=== PATIENT | female | born 2000 | race Caucasian/White ===

== ENCOUNTER → 2020-01-06 15:22 | Outpatient (BNVA) | payer OTHER, SELFPAY | PROVIDERS: Family Provider Family Medicine; PCP Nurse Practitioner Family; Visit Provider Nurse Practitioner Women's Health | DX: N92.6 Irregular menstruation, unspecified (principal); Z01.419 Encounter for gynecological examination (general) (routine) without abnormal findings | CPT/HCPCS: 83036; 84402; 84443; 84702 ==

== ENCOUNTER → 2020-01-07 10:58 | Outpatient (BNVA) | payer OTHER, SELFPAY | PROVIDERS: Family Provider Family Medicine; PCP Nurse Practitioner Family; Visit Provider Nurse Practitioner Women's Health | DX: N92.6 Irregular menstruation, unspecified (principal); N83.02 Follicular cyst of left ovary; N83.01 Follicular cyst of right ovary | CPT/HCPCS: 76830 ==

== ENCOUNTER 2021-03-23 12:43 | Outpatient (CLI) | payer OTHER, SELFPAY ==
--- NOTE | 2021-03-23 | US_ITS ---
WS: [id number] RENAL ULTRASOUND URINARY BLADDER ULTRASOUND HISTORY: URINARY FREQUENCY COMPARISON: None available. TECHNIQUE: 2-D and color Doppler imaging of the kidney submitted. Right kidney: 9.7 cm x 5.5 cm x 3.8 cm. Normal echogenicity with no hydronephrosis or mass. Left kidney: 11.9 cm x 4.3 cm x 4.8 cm. Normal echogenicity with no hydronephrosis or mass. Aorta: Normal. Urinary Bladder: Normal distention. No filling defects. Prevoid volume: 395 mL. Post void volume: 14 mm. US/US renal BI with PV bladder IMPRESSION: Normal renal ultrasound. No significant post void residual.
--- NOTE | 2021-03-23 12:57 | US_ITS ---
WS: [id number] RENAL ULTRASOUND URINARY BLADDER ULTRASOUND HISTORY: URINARY FREQUENCY COMPARISON: None available. TECHNIQUE: 2-D and color Doppler imaging of the kidney submitted. Right kidney: 9.7 cm x 5.5 cm x 3.8 cm. Normal echogenicity with no hydronephrosis or mass. Left kidney: 11.9 cm x 4.3 cm x 4.8 cm. Normal echogenicity with no hydronephrosis or mass. Aorta: Normal. Urinary Bladder: Normal distention. No filling defects. Prevoid volume: 395 mL. Post void volume: 14 mm.
== END 2021-03-23 12:44 | disposition home or self-care (01) ==
PROVIDERS: PCP Family Medicine; Visit Provider Family Medicine
DX: R35.0 Frequency of micturition (principal)
CPT/HCPCS: 76770; 76857

== ENCOUNTER → 2021-05-30 15:02 | Outpatient (BNVA) | payer OTHER, SELFPAY | PROVIDERS: PCP Family Medicine; Visit Provider Nurse Practitioner Women's Health | DX: E28.2 Polycystic ovarian syndrome (principal) | CPT/HCPCS: 84702 ==

== ENCOUNTER → 2021-07-05 12:15 | Outpatient (BNVA) | payer OTHER, SELFPAY | PROVIDERS: PCP Family Medicine; Visit Provider Nurse Practitioner Women's Health | DX: Z01.419 Encounter for gynecological examination (general) (routine) without abnormal findings (principal) | CPT/HCPCS: 88175 ==

== ENCOUNTER 2021-12-11 10:09 | Outpatient (CLI) | payer OTHER, SELFPAY ==
[2021-12-11 11:20] LABS: Total Volume Urine 1350 ml
[2021-12-11 11:27] LABS: Urine Creatinine 104 mg/dL (28-217)
[2021-12-11 11:44] LABS: Thyroid Stimulating Hormone 2.05 uIU/mL (0.27-4.20)
[2021-12-12 15:08] LABS: Thyroglobulin AB <1 IU/mL (< or = 1)
[2021-12-12 15:38] LABS: Thyroid Peroxidase Antobodies <1 IU/mL (<9)
[2021-12-14 21:12] LABS: Calculated Total (E+NE) 35 mcg/24 h (26-121)
[2021-12-15 21:37] LABS: 24 Hour Urine Volume 1350 mL; 5-HIAA, 24 Hour Urine 3.2 mg/24 h (<=6.0)
== END 2021-12-11 10:10 | disposition home or self-care (01) ==
LOC: LAB 10:35
PROVIDERS: PCP Family Medicine; Visit Provider Internal Medicine
DX: E28.2 Polycystic ovarian syndrome (principal); R23.2 Flushing
CPT/HCPCS: 36415; 82384; 82570; 83497; 84439; 84443; 86376; 86800

== ENCOUNTER → 2022-02-21 10:19 | Outpatient (BNVA) | payer OTHER, SELFPAY | PROVIDERS: PCP Family Medicine; Visit Provider Registered Nurse Neonatal Intensive Care | DX: J02.9 Acute pharyngitis, unspecified (principal) | CPT/HCPCS: 87071; 87880 ==

== ENCOUNTER → 2022-08-27 12:00 | Outpatient (BNVA) | payer OTHER, SELFPAY | PROVIDERS: PCP Family Medicine; Visit Provider Nurse Practitioner Women's Health | DX: E28.2 Polycystic ovarian syndrome (principal); N76.3 Subacute and chronic vulvitis; N92.6 Irregular menstruation, unspecified | CPT/HCPCS: 36415; 84403; 84702 ==

== ENCOUNTER → 2022-11-21 13:30 | Outpatient (BNVA) | payer OTHER, SELFPAY | PROVIDERS: PCP Family Medicine; Visit Provider Nurse Practitioner Women's Health | DX: N92.3 Ovulation bleeding (principal) | CPT/HCPCS: 84702 ==

== ENCOUNTER → 2022-12-17 09:41 | Outpatient (BNVA) | payer OTHER, SELFPAY | PROVIDERS: PCP Family Medicine; Visit Provider Nurse Practitioner Women's Health | DX: Z36.87 Encounter for antenatal screening for uncertain dates (principal) | CPT/HCPCS: 76801; 84315 ==

== ENCOUNTER 2023-01-01 16:04 | Emergency (ER) | payer OTHER, SELFPAY ==
[2023-01-01 16:20] VITALS: BP 125/77; PULSE 77; RESP 18; TEMP 36.7; O2SAT 100
--- NOTE | 2023-01-01 16:31 | ED_ITS ---
HPI - Nausea/Vomiting/Diarrhea General: Chief complaint: Nausea/Vomiting/Diarrhea Stated complaint: 10 weeks , n/v, possible dehydration Time Seen by Provider: 01/01/23 16:31 History of Present Illness: 22-year-old female presents emerged part with complaints of inability to hold liquids or fluids down for the previous 4 days. Patient states that she feels extremely dehydrated and has had more than 10 episodes of nausea and vomiting this morning. She states she contacted her primary care provider and was advised to come to the emergency department to be evaluated and treated. She states she is approximately 10 weeks gestation. She denies fevers chills or night sweats. Associated nausea: Yes Associated symtoms: Reports nausea Review of Systems General: Reports: 10 or more systems reviewed and unremarkable except in HPI and below GI: Reports: nausea and vomiting [facility] ED PFSH: Medical History Low libido No pertinent past medical history neghx: htn,dm,thyroid,dvt/pe PCOS (polycystic ovarian syndrome) Psychiatric care Surgical History Hx of wisdom tooth extraction (~04/2021) Family History Grandfather Diabetes Maternal Family/Other Diabetes Maternal Uncle Grandmother Hypertension Maternal Stroke Maternal Mother Hypertension Denies family history of Colon cancer Ovarian cancer Heart disease Hypercholesteremia Breast cancer Uterine cancer Physical Exam Narrative: EXAM NARRATIVE: Constitutional: the patient appeared well nourished and normally developed. Vital signs as documented. HENMT: Head exam is unremarkable. Neck is without jugular venous distension, thyromegaly, or carotid bruits. Carotid upstrokes are brisk bilaterally. Eye: No scleral icterus or corneal arcus noted Resp: Lungs are clear to auscultation and percussion. Cardio: Cardiac exam reveals the PMI to be normally sized and situated. Rhythm is regular. First and second heart sounds normal. No murmurs, rubs or gallops. GI: Abdominal exam reveals normal bowel sounds, no masses, no organomegaly and no aortic enlargement. Soft, nontender to palpation. No obvious palpable masses noted. No hepatomegaly appreciated. Extremity: Extremities are non-edematous and both femoral and pedal pulses are normal. Moves all extremities well, she has sensation in all extremities. Neuro: Alert and oriented x4, person, place, time and situation. Cranial nerves II through XII are grossly intact, there is no focal neurological deficits that I can appreciate at present. Motor strength in the upper and lower extremities are equal and bilateral 5/5. Psych: Cooperative, calm, normal thought process, appropriate judgment. Skin: No lesions, rashes. Course Vital Signs: Vital signs: Vital Signs Temperature 98.1 F 01/01/23 16:20 Pulse Rate 78 01/01/23 18:01 Respiratory Rate 17 01/01/23 18:01 Blood Pressure 120/80 01/01/23 18:01 Pulse Oximetry 98 01/01/23 18:01 Oxygen Delivery Me thod Room Air 01/01/23 16:20 MDM - Nausea/Vomiting/Diarrhea Medical Decision Making Physical exam completed and documented, I will provide the patient IV fluid rehydration as well as antinausea medicine. No radiology studies performed this visit Discharge Plan Discharge Patient Disposition: Home Clinical Impression: Nausea and vomiting during prior to 22 weeks gestation, Dehydration Condition: Stable Prescriptions: New ondansetron 4 mg tablet,disintegrating 4 mg PO Q8H PRN (Reason: nausea and vomiting) 5 Days Qty: 10 0RF No Action clobetasol 0.05 % ointment 1 applic topical BID PRN (Reason: vulvitits) Qty: 30 0RF Rx Instructions: use a thin film promethazine 25 mg tablet 25 mg PO Q6H PRN (Reason: nausea and vomiting) Qty: 30 0RF duloxetine 60 mg capsule,delayed release(DR/EC) 60 mg PO DAILY Qty: 30 2RF DHA 200 mg capsule 200 mg PO DAILY pyridoxine (vitamin B6) 25 mg tablet 25 mg PO DAILY PRN Unisom (doxylamine) 25 mg tablet 25 mg PO Q6H PRN Discharge Orders: Discharge ED (Routine); Ordered 01/01/23 Ordered By: Khoa Lira Referrals: Tyler Maynard MD [Primary Care Provider] - Discharge Diet: Advance as tolerated Discharge Activity: Resume usual activity Coding Level of Care Code ED Gis Analyst Developer for Chg Kj
[2023-01-01] MEDS: sodium chloride 0.9% 1,000 ML 999 ML IV (17:00)
[2023-01-01] MEDS: ondansetron 4 MG Tablet PO (17:00)
[2023-01-01 18:01] VITALS: BP 120/80; PULSE 78; RESP 17; O2SAT 98
== END 2023-01-01 18:02 | disposition home or self-care (01) ==
PROVIDERS: Emergency Provider Internal Medicine; PCP Family Medicine
DX: O26.892 Other specified pregnancy related conditions, second trimester (principal); R11.2 Nausea with vomiting, unspecified; E86.0 Dehydration; Z3A.22 22 weeks gestation of pregnancy
CPT/HCPCS: 84315; 96360; 99283; J7030; Q0162

== ENCOUNTER → 2023-01-06 10:17 | Outpatient (BNVA) | payer OTHER, SELFPAY | PROVIDERS: PCP Family Medicine; Visit Provider Obstetrics & Gynecology | DX: Z34.00 Encounter for supervision of normal first pregnancy, unspecified trimester (principal) | CPT/HCPCS: 80053; 80307; 82950; 84315; 85025; 86592; 86695; 86696; 86762; 86803; 86850; 86900; 87086; 87340; 87806 ==

== ENCOUNTER → 2023-01-08 09:30 | Outpatient (BNVA) | payer OTHER, SELFPAY | PROVIDERS: PCP Family Medicine; Visit Provider Obstetrics & Gynecology | DX: Z34.00 Encounter for supervision of normal first pregnancy, unspecified trimester (principal) | CPT/HCPCS: 82950 ==

== ENCOUNTER → 2023-01-20 10:07 | Outpatient (BNVA) | payer OTHER, SELFPAY | PROVIDERS: PCP Family Medicine; Visit Provider Obstetrics & Gynecology | DX: Z34.00 Encounter for supervision of normal first pregnancy, unspecified trimester (principal) | CPT/HCPCS: 84315; 87491; 87591; 87806 ==

== ENCOUNTER → 2023-02-12 11:32 | Outpatient (BNVA) | payer OTHER, SELFPAY | PROVIDERS: PCP Family Medicine; Visit Provider Nurse Practitioner Women's Health | DX: Z34.02 Encounter for supervision of normal first pregnancy, second trimester | CPT/HCPCS: 84315; 87086 ==

== ENCOUNTER 2023-02-14 16:46 | Emergency (ER) | payer OTHER, SELFPAY ==
[2023-02-14 16:51] VITALS: BP 119/83; PULSE 100; RESP 18; TEMP 36.4; O2SAT 99; BMI 28.3
--- NOTE | 2023-02-14 16:56 | ED_ITS ---
HPI - Nausea/Vomiting/Diarrhea 2 General: Chief complaint: Nausea/Vomiting/Diarrhea Stated complaint: NV,16 wks preg Time Seen by Provider: 02/14/23 16:47 Source: patient Mode of arrival: ambulatory Limitations: no limitations History of Present Illness: Patient is a 23-year-old female presents to ED today with a complaint of nausea and vomiting. She is approximately 16 weeks . Patient states she has had nausea and vomiting throughout her . Looking at previous documentation she has tried almost everything besides Zofran. Women's health documentation states that patient is not very compliant as far as avoiding trigger foods and eating small frequent meals. Patient states she is not having any abdominal pain. Denies vaginal bleeding or leaking of fluid. No pelvic pain or cramping. She has had some muscle cramping to her lower extremities. She has not been running fevers. No poor food exposures. Denies sick contacts. MD elicited complaint: nausea and vomiting Onset (ago): day(s) Associated nausea: Yes Associated abdominal pain: No Location of pain: None Severity: moderate Exacerbating factors: eating Relieving factors: none Context: other ( ) Associated symtoms: Reports nausea and other (muscle cramps); Denies chest pain, dizziness, dysuria, fatigue, headache(s) or malaise Review of Systems 2 Const: Denies: fever(s), chills, body aches, fatigue or malaise Card: Denies: chest pain Resp: Denies: dyspnea GI: Reports: nausea and vomiting; Denies: abdominal pain, diarrhea or change in bowel habits : Denies: flank pain, difficulty voiding, dysuria, urinary frequency, urinary urgency, urinary hesitancy, hematuria, genital lesions, genital pruritis, vaginal odor, vaginal bleeding, vaginal discharge or pelvic pain Musc: Reports: muscle cramps; Denies: back pain Skin/Breast: Denies: rash Neuro: Denies: headache(s) or dizziness PFSH ED 2 PFSH: Medical History Psychiatric care Low libido PCOS (polycystic ovarian syndrome) No pertinent past medical history neghx: htn,dm,thyroid,dvt/pe Surgical History Hx of wisdom tooth extraction (~04/2021) Family History Grandfather Diabetes Maternal Family/Other Diabetes Maternal Uncle Grandmother Hypertension Maternal Stroke Maternal Mother Hypertension Denies family history of Colon cancer Ovarian cancer Heart disease Hypercholesteremia Breast cancer Uterine cancer Physical Exam 2 Const: COMMON NORMALS: no acute distress, patient oriented x3, no limitations, healthy appearing, alert and well nourished Resp: COMMON NORMALS: normal respiratory effort and clear to auscultation bilaterally AUSCULTATION: clear to auscultation bilaterally Cardio: COMMON NORMALS: regular rate and regular rhythm RATE: regular rate RHYTHM: regular rhythm GI: COMMON NORMALS: Normal to inspection, nondistended, normoactive bowel sounds present, Soft to palpation and non-tender INSPECTION: Yes gravid abdomen AUSCULTATION: Yes normoactive bowel sounds PALPATION: Yes Soft to palpation Neuro: COMMON NORMALS: patient oriented x3 SENSORIUM/ORIENTATION: Yes alert Course 2 Vital Signs: Vital signs: Vital Signs Temperature 97.6 F 02/14/23 16:51 Pulse Rate 100 02/14/23 16:51 Respiratory Rate 18 02/14/23 16:51 Blood Pressure 119/83 02/14/23 16:51 Pulse Oximetry 99 02/14/23 16:51 Oxygen Delivery Me thod Room Air 02/14/23 16:51 MDM - Nausea/Vomiting/Diarrhea Medical Decision Making Patient here for nausea and vomiting related to . She has been dealing with nausea and vomiting throughout her . She is now 16 weeks. She arrives with normal vital signs. Her blood work overall is unremarkable. Urine showing dehydration with 3+ ketones and dark yellow appearance. It is contaminated with 15-25 squamous epithelial cells. She has no urinary complaints at this time. Recommend she keep a close observation of symptoms and follow up with PCP or Women's Health if she becomes symptomatic. She was given IV reglan and benadryl here and has held down water/crackers well and states her nausea is much improved. She can follow up with Women's Health if vomiting persists following today's visit. Return to ED precautions given. Lab Data 02/14/23 17:09 02/14/23 17:09 Laboratory Results WBC 12.46 10^3/uL (3.29-11.43) H 02/14/23 17:09 RBC 4.53 10^6/uL (3.85-5.65) 02/14/23 17:09 Hgb 13.40 g/dL (11.27-16.99) 02/14/23 17:09 Hct 39.2 % (36-47) 02/14/23 17:09 MCV 86.5 fl (85-98) 02/14/23 17:09 MCH 29.6 pg (27-33) 02/14/23 17:09 MCHC 34.2 g/dL (30-55) 02/14/23 17:09 RDW 12.8 % (12.1-15.1) 02/14/23 17:09 Plt Count 256 10^3/cmm (157-399) 02/14/23 17:09 MPV 9.3 fL (7.4-10.4) 02/14/23 17:09 Neut % (Auto) 76.6 % 02/14/23 17:09 Lymph % (Auto) 17.0 % 02/14/23 17:09 [place] % (Auto) 5.7 % 02/14/23 17:09 Eos % (Auto) 0.2 % 02/14/23 17:09 Baso % (Auto) 0.2 % 02/14/23 17:09 Neut # (Auto) 9.54 10^3/uL (1.8-7.7) H 02/14/23 17:09 Lymph # (Auto) 2.1 10^3/uL (0.8-4.8) 02/14/23 17:09 [place] # (Auto) 0.7 10^3/uL (0.2-0.9) 02/14/23 17:09 Eos # (Auto) 0.0 10^3/uL (0.0-0.8) 02/14/23 17:09 Baso # (Auto) 0.0 10^3/uL (0.0-0.1) 02/14/23 17:09 Nucleated RBC % (auto) 0 % 02/14/23 17:09 Nucleated RBCs # 0.0 /100WBC 02/14/23 17:09 Sodium 137 mmol/L (136-145) 02/14/23 17:09 Potassium 3.5 mmol/L (3.5-5.1) 02/14/23 17:09 Chloride 99 mmol/L (98-107) 02/14/23 17:09 Carbon Dioxide 25 mmol/L (22-29) 02/14/23 17:09 Anion Gap 16.5 (5-19) 02/14/23 17:09 BUN 13 mg/dL (6-20) 02/14/23 17:09 Creatinine 0.5 mg/dL (0.5-0.9) 02/14/23 17:09 GFR Calculation 152.9 mL/min (90-130) H 02/14/23 17:09 Glucose 97 mg/dL (65-115) 02/14/23 17:09 Calculated Osmolality 284 mOsm/kg (285-295) L 02/14/23 17:09 Calcium 9.5 mg/dL (8.5-10.5) 02/14/23 17:09 Magnesium 1.8 mg/dL (1.7-2.3) 02/14/23 17:09 Total Bilirubin 0.4 mg/dL (0.15-1.2) 02/14/23 17:09 AST 16 U/L (0-32) 02/14/23 17:09 ALT 11 U/L (0-33) 02/14/23 17:09 Alkaline Phosphatase 84 U/L (35-105) 02/14/23 17:09 Total Protein 7.2 g/dL (6.6-8.7) 02/14/23 17:09 Albumin 4.2 g/dL (3.5-5.2) 02/14/23 17:09 Globulin 3.0 g/dL (1.3-4.6) 02/14/23 17:09 Urine Color Dark yellow (Yellow) 02/14/23 17:44 Urine Appearance Sl hazy (CLEAR) A 02/14/23 17:44 Urine pH 5 (5-7) 02/14/23 17:44 Ur Specific [place] 1.020 (1.005-1.030) 02/14/23 17:44 Urine Protein 1+ (Negative) H 02/14/23 17:44 Urine Glucose (UA) Norm (Normal) 02/14/23 17:44 Urine Ketones 3+ (Negative) H 02/14/23 17:44 Urine Blood 2+ (Negative) H 02/14/23 17:44 Urine Nitrate Negative (Negative) 02/14/23 17:44 Urine Bilirubin Neg (Negative) 02/14/23 17:44 Urine Urobilinogen 1 mg/dL (Negative) H 02/14/23 17:44 Ur Leukocyte Esterase Negative (Negative) 02/14/23 17:44 Urine RBC 0-4 /hpf (0-2) H 02/14/23 17:44 Urine WBC 5-10 /hpf (0-5) H 02/14/23 17:44 Ur Squamous Epith Cells 15-25 /hpf (0-5) H 02/14/23 17:44 Amorphous Sediment Not Reportable 02/14/23 17:44 Urine Bacteria 2+ /hpf (NONE) H 02/14/23 17:44 Urine Mucus 2+ /hpf 02/14/23 17:44 No radiology studies performed this visit Discharge Plan Discharge Patient Disposition: Home Clinical Impression: Nausea and vomiting during prior to 22 weeks gestation Condition: Stable Prescriptions: No Action clobetasol 0.05 % ointment 1 applic topical BID PRN (Reason: vulvitits) Qty: 30 0RF Rx Instructions: use a thin film metoclopramide HCl [Reglan] 10 mg tablet 10 mg PO Q6H PRN (Reason: nausea and vomiting) Qty: 60 0RF duloxetine 60 mg capsule,delayed release(DR/EC) 60 mg PO DAILY Qty: 30 2RF DHA 200 mg capsule 200 mg PO DAILY pyridoxine (vitamin B6) 25 mg tablet 25 mg PO DAILY PRN Unisom (doxylamine) 25 mg tablet 25 mg PO Q6H PRN promethazine 25 mg tablet 25 mg PO Q6H PRN (Reason: nausea and vomiting) Qty: 30 0RF Discharge Orders: Discharge ED (Routine); Ordered 02/14/23 Ordered By: Mamta Lamas Referrals: Tyler Maynard MD [Primary Care Provider] - Patient Instructions: Nausea and Vomiting in (ED) Coding Level of Care Code ED Rug Measurer for Wayne Underwood
[2023-02-14 17:15] LABS: Basophils % 0.2 %; Eosinophils % 0.2 %; Hematocrit 39.2 % (36-47); Lymphocytes # 2.1 10^3/uL (0.8-4.8); Mean Corpuscular HGB Conc 34.2 g/dL (30-55); Mean Corpuscular Hemoglobin 29.6 pg (27-33); Mean Corpuscular Volume 86.5 fl (85-98); Mean Platelet Volume 9.3 fL (7.4-10.4); Monocytes # 0.7 10^3/uL (0.2-0.9); Monocytes % 5.7 %; Neutrophils # 9.54 10^3/uL (1.8-7.7); Neutrophils % 76.6 %; Nucleated Red Blood Cells % 0 %; Platelet Count 256 10^3/cmm (157-399); Red Blood Count 4.53 10^6/uL (3.85-5.65); Red Cell Distribution Width 12.8 % (12.1-15.1); White Blood Count 12.46 10^3/uL (3.29-11.43)
[2023-02-14] MEDS: diphenhydrAMINE 50 mg/mL SDV 1mL 25 MG IVP (17:39)
[2023-02-14] MEDS: sodium chloride 0.9% 1,000 ML 999 ML IV (17:39)
[2023-02-14] MEDS: metoclopramide 5 mg/mL SDV 2 mL 10 MG IVP (17:41)
[2023-02-14 17:46] LABS: Alanine Aminotransferase 11 U/L (0-33); Albumin Level 4.2 g/dL (3.5-5.2); Alkaline Phosphatase 84 U/L (35-105); Anion Gap 16.5 (5-19); Aspartate Amino Transferase 16 U/L (0-32); Blood Urea Nitrogen 13 mg/dL (6-20); Calcium 9.5 mg/dL (8.5-10.5); Carbon Dioxide 25 mmol/L (22-29); Chloride 99 mmol/L (98-107); Glomerular Filtration Rate 152.9 mL/min (90-130); Glucose 97 mg/dL (65-115); Magnesium 1.8 mg/dL (1.7-2.3); Osmolality Calculated 284 mOsm/kg (285-295); Potassium 3.5 mmol/L (3.5-5.1); Sodium 137 mmol/L (136-145); Total Bilirubin 0.4 mg/dL (0.15-1.2); Total Protein 7.2 g/dL (6.6-8.7)
[2023-02-14 18:12] LABS: Add Urine Microscopic? YES; Bilirubin Urine Neg (Negative); Blood Urine 2+ (Negative); Glucose Urine UA Norm (Normal); Ketones Urine 3+ (Negative); Leukocyte Esterase Urine Negative (Negative); Nitrate Urine Negative (Negative); Protein Urine 1+ (Negative); RBC Urine 0-4 /hpf (0-2); Urine Appearance SL Hazy (CLEAR); Urine Color Dark Yellow (Yellow); Urobilinogen Urine 1 mg/dL (Negative); pH Urine 5 (5-7)
[2023-02-14 18:13] LABS: Add Urine Culture? No; Bacteria Urine 2+ /hpf; Mucus Urine 2+ /hpf; Squamous Epithelial Cell Urine 15-25 /hpf (0-5)
== END 2023-02-14 19:19 | disposition home or self-care (01) ==
PROVIDERS: Emergency Provider Physician Assistant; PCP Family Medicine
DX: O21.8 Other vomiting complicating pregnancy (principal); Z3A.16 16 weeks gestation of pregnancy
CPT/HCPCS: 36415; 80053; 81001; 83735; 85025; 96374; 96375; 99284; J1200; J2765; J7030

== ENCOUNTER → 2023-03-01 11:05 | Outpatient (BNVA) | payer OTHER, SELFPAY | PROVIDERS: PCP Family Medicine; Visit Provider Nurse Practitioner Family | DX: R39.9 Unspecified symptoms and signs involving the genitourinary system (principal); N94.9 Unspecified condition associated with female genital organs and menstrual cycle | CPT/HCPCS: 81000 ==

== ENCOUNTER → 2023-03-05 13:56 | Outpatient (BNVA) | payer OTHER, SELFPAY | PROVIDERS: PCP Family Medicine; Visit Provider Nurse Practitioner Women's Health | DX: N94.9 Unspecified condition associated with female genital organs and menstrual cycle (principal); R30.0 Dysuria | CPT/HCPCS: 84315; 87086 ==

== ENCOUNTER → 2023-03-10 10:58 | Outpatient (BNVA) | payer OTHER, SELFPAY | PROVIDERS: PCP Family Medicine; Visit Provider Obstetrics & Gynecology | DX: Z34.00 Encounter for supervision of normal first pregnancy, unspecified trimester (principal) | CPT/HCPCS: 76805; 84315 ==

== ENCOUNTER → 2023-04-09 07:55 | Outpatient (BNVA) | payer OTHER, MEDICAID, SELFPAY | PROVIDERS: PCP Family Medicine; Visit Provider Nurse Practitioner Women's Health | DX: Z34.02 Encounter for supervision of normal first pregnancy, second trimester (principal); F41.1 Generalized anxiety disorder; F33.1 Major depressive disorder, recurrent, moderate | CPT/HCPCS: 82950; 84315 ==

== ENCOUNTER → 2023-05-05 07:55 | Outpatient (BNVA) | payer OTHER, MEDICAID, SELFPAY | PROVIDERS: PCP Family Medicine; Visit Provider Obstetrics & Gynecology | DX: Z34.02 Encounter for supervision of normal first pregnancy, second trimester | CPT/HCPCS: 84315; 85025 ==

== ENCOUNTER → 2023-07-07 10:11 | Outpatient (BNVA) | payer OTHER, MEDICAID, SELFPAY | PROVIDERS: PCP Family Medicine; Visit Provider Nurse Practitioner Women's Health | DX: O26.10 Low weight gain in pregnancy, unspecified trimester (principal); Z3A.35 35 weeks gestation of pregnancy | CPT/HCPCS: 76816; 84315; 87081 ==

== ENCOUNTER 2023-07-30 00:23 | Inpatient (IN) | payer BC, MEDICAID, SELFPAY ==
[2023-07-29 22:17] VITALS: BP 139/91; PULSE 90
[2023-07-29 22:32] VITALS: BP 147/94; PULSE 86
[2023-07-29 22:47] VITALS: BP 140/91; PULSE 87
[2023-07-29 22:56] VITALS: RESP 16
[2023-07-29 22:57] VITALS: BMI 32.5
[2023-07-29 23:01] LABS: Nitrazine Paper, PH Positive
[2023-07-29 23:02] VITALS: BP 136/89; PULSE 83
[2023-07-29 23:07] LABS: Actim Prom Positive
[2023-07-29 23:17] VITALS: BP 140/92; PULSE 87; TEMP 36.7
[2023-07-29 23:26] LABS: Basophils % 0.2 %; Eosinophils # 0.1 10^3/uL (0.0-0.8); Eosinophils % 0.6 %; Hematocrit 35.5 % (36-47); Lymphocytes # 2.5 10^3/uL (0.8-4.8); Lymphocytes % 20.2 %; Mean Corpuscular HGB Conc 34.4 g/dL (30-55); Mean Corpuscular Volume 87.2 fl (85-98); Mean Platelet Volume 10.8 fL (7.4-10.4); Monocytes # 1.1 10^3/uL (0.2-0.9); Monocytes % 9.1 %; Neutrophils # 8.63 10^3/uL (1.8-7.7); Neutrophils % 69.5 %; Nucleated Red Blood Cells % 0 %; Platelet Count 205 10^3/cmm (157-399); Red Blood Count 4.07 10^6/uL (3.85-5.65); Red Cell Distribution Width 12.7 % (12.1-15.1); White Blood Count 12.42 10^3/uL (3.29-11.43)
[2023-07-29] MEDS: dextrose 5%-lactated ringers 1,000 ML 125 ML IV (23:41)
[2023-07-29] MEDS: ampicillin 2,000 MG in sodium chloride 0.9% (plus) 50 ML 100 MG IV (23:42)
[2023-07-30] VITALS (84 sets, daily range): BP systolic 110–183; BP diastolic 67–108; PULSE 59–110; RESP 18; TEMP 36.6–37.4; O2SAT 92–100; BMI 32.5
--- NOTE | 2023-07-30 00:21 | PM.OPHPUD ---
Labor & Delivery H&P Update Date of Procedure: July 30, 2023 Date H&P Performed: 07/21/23 H&P update information: I have reviewed H&P completed within last 30 days and Changes to prior documentation as noted here (cervix 3cm, Premature ruptured of memebranes) Admission Diagnosis:
[2023-07-30] MEDS: ampicillin 1,000 MG in sodium chloride 0.9% (plus) 50 ML 100 MG IV ×4 (03:47→15:49)
[2023-07-30] MEDS: acetaminophen 325 mg Tablet 650 MG PO ×2 (04:11→11:05)
[2023-07-30 08:40] LABS: Basophils % 0.2 %; Eosinophils # 0.1 10^3/uL (0.0-0.8); Eosinophils % 0.7 %; Hematocrit 37.2 % (36-47); Lymphocytes # 2.7 10^3/uL (0.8-4.8); Lymphocytes % 23.2 %; Mean Corpuscular HGB Conc 33.3 g/dL (30-55); Mean Corpuscular Hemoglobin 29.4 pg (27-33); Mean Corpuscular Volume 88.2 fl (85-98); Mean Platelet Volume 10.9 fL (7.4-10.4); Monocytes # 0.9 10^3/uL (0.2-0.9); Monocytes % 7.7 %; Neutrophils # 7.84 10^3/uL (1.8-7.7); Neutrophils % 67.9 %; Nucleated Red Blood Cells % 0 %; Platelet Count 205 10^3/cmm (157-399); Red Blood Count 4.22 10^6/uL (3.85-5.65); White Blood Count 11.54 10^3/uL (3.29-11.43)
[2023-07-30 08:55] LABS: Alanine Aminotransferase 8 U/L (0-33); Albumin Level 3.2 g/dL (3.5-5.2); Alkaline Phosphatase 240 U/L (35-105); Anion Gap 12.4 (5-19); Aspartate Amino Transferase 12 U/L (0-32); Blood Urea Nitrogen 14 mg/dL (6-20); Calcium 8.5 mg/dL (8.5-10.5); Carbon Dioxide 22 mmol/L (22-29); Chloride 105 mmol/L (98-107); Creatinine Clr Calc Pharmacy 199.5365; Glomerular Filtration Rate 152.9 mL/min (90-130); Glucose 91 mg/dL (65-115); Osmolality Calculated 280 mOsm/kg (285-295); Potassium 4.4 mmol/L (3.5-5.1); Protein Urine Trace (Negative); Sodium 135 mmol/L (136-145); Total Bilirubin 0.2 mg/dL (0.15-1.2); Total Protein 6.2 g/dL (6.6-8.7); Uric Acid 3.5 mg/dL (2.4-5.7); Urine Appearance Clear (CLEAR); Urine Color Yellow (Yellow); pH Urine 6 (5-7)
[2023-07-30 08:56] LABS: Add Urine Microscopic? YES; Bilirubin Urine Neg (Negative); Blood Urine 2+ (Negative); Glucose Urine UA Norm (Normal); Ketones Urine Negative (Negative); Leukocyte Esterase Urine Negative (Negative); Nitrate Urine Negative (Negative); Urobilinogen Urine Norm (Negative)
[2023-07-30 09:09] LABS: Add Urine Culture? No; Amorphous Sediment Urine TRACE /hpf; Bacteria Urine TRACE /hpf; Fine Granular Casts Urine RARE /lpf; Hyaline Casts Urine 0-4 /lpf; Mucus Urine TRACE /hpf; RBC Urine 0-4 /hpf (0-2); Squamous Epithelial Cell Urine 0-4 /hpf (0-5); Transitional Epi Cells Urine 0-4 /hpf; WBC Urine 0-4 /hpf (0-5)
[2023-07-30 09:12] LABS: Urine Creatinine 136 mg/dL (28-217)
[2023-07-30 09:14] LABS: UPRO/UCREAT Ratio 0.26 mg/mg CR; Urine Protein Random 35 mg/dL
[2023-07-30] MEDS: oxytocin 30 UNIT/500 ML BAG IV (10:50)
[2023-07-30] MEDS: duloxetine 30 mg Capsule PO (11:04)
--- NOTE | 2023-07-30 11:19 | P.PN_ITS ---
Subjective 2 Subjective: Mrs. Little 23-year-old female G1, P0 with an EGA at [] admitted to labor and delivery with premature rupture membranes. Refers feeling comfortable occasionally feeling contractions. Vitals/I&O/Wt Last Vital Signs Temp 99.3 F 07/30/23 08:44 Pulse 80 07/30/23 11:08 Resp 16 07/29/23 22:56 BP 136/94 07/30/23 11:08 O2 Del Method Room Air 07/29/23 23:04 07/29/23 07/30/23 07/30/23 22:59 06:59 14:59 Intake Total 202.083 / 202.083 50 / 50 Balance 202.083 / 202.083 50 / 50 Weight last 48 hrs Weight 91.626 kg Weight 91.626 kg Physical Exam 2 Narrative: GA: Alert and oriented ?3. Lungs: Clear to auscultation bilaterally. Heart: Regular rhythm and rate. Abdomen: Gravid, full the height equals dates, nontender. ASSISTANT CREDIT MANAGER: SVE; dilation: 4 cm, effacement: 85%, station: -3, presentation: Cephalic, membranes: Premature rupture of membranes. Extremities: no edema, no cyanosis, no calves pain. heart tracing: Basal rate: 140's bpm, Variability: moderate, Accelerations: present, Decelerations: absent, Contraction: q3min. Data 07/31/23 06:15 07/30/23 08:03 A&P Assessment and plan (1) Premature rupture of membranes: Mrs. Little 23-year-old female G1, P0 with an EGA at [] came to labor and delivery with early onset of labor, referring possible rupture of membrane. Prior was diagnosed and confirmed by active problem. heart tracing category 1. Oxytocin low-dose protocol started this morning, after evening shift staff refused to give her oxytocin because she had not signed the consent for oxytocin. Anticipate vaginal delivery Qualifiers: PROM gestational age: full term PROM onset of labor timing: onset of labor within 24 hours of rupture Qualified Code(s): O42.02 - Full-term premature rupture of membranes, onset of labor within 24 hours of rupture (2) Term : Plan Start oxytocin low-dose protocol for augmentation of labor. Continuous monitoring. Attestations 2 Medical Necessity Statement*: In my professional opinion per admitting diagnosis Coding Level of Care Code Acute Code for Chg Fwd Diagnoses Full-term premature rupture of membranes with onset of labor within 24 hours of rupture O42.02 PROM gestational age: full term PROM onset of labor timing: onset of labor within 24 hours of rupture Term Z34.90
[2023-07-30] MEDS: lactated ringers 1,000 ML 999 ML IV (15:42)
[2023-07-30] MEDS: labetalol 5 mg/mL SDV 20mL 20 MG IVP (15:45)
[2023-07-30] MEDS: ROPivacaine syringe 100 MG/50 ML SYRINGE 10 MG EPIDURAL (16:22)
--- NOTE | 2023-07-30 16:45 | ANES.PREANE2 ---
Pre-Anesthetic Assessment Height/Weight: Height 1.68 m Weight 91.626 kg Temp Pulse Resp BP O2 Del Method 99.0 F 66 16 164/108 Room Air 07/30/23 15:45 07/30/23 16:34 07/29/23 22:56 07/30/23 16:34 07/29/23 23:04 Preop Diagnosis: labor pains epidural Was Beta Hilton taken within 24 hours: N/A Was Clonidine taken within 24 hours: N/A Exam alert, oriented x 3, clear to auscultation bilaterally and regular rate & rhythm Airway Submandibular: within normal limits Cervical ROM: within normal limits Mallampati: Class II Dentition: full Pulmonary None reported CV/HEM None reported None reported Hepatic None reported GI Gastroesophageal Reflux Disease Metabolic None reported Musc/skel None reported Neuropsych Anxiety and Depression Anesthetic Plan ASA status: 2 Anesthesia: Eval. for regional block and Regional (specify below) Risk of > 500 ml blood loss (7ml/kg in children): No Medications/Allergies Home Medications Medication Instructions Recorded Confirmed Last Taken Type clobetasol 0.05 % topical ointment 1 applic topical BID PRN vulvitits 08/27/22 07/30/23 Unknown Rx #30 grams docosahexaenoic acid 200 mg 200 mg PO DAILY 12/17/22 07/30/23 Unknown History capsule ( DHA) metoclopramide HCl 10 mg tablet 10 mg PO Q6H PRN nausea and 06/09/23 07/30/23 Unknown Rx (Reglan) vomiting #60 tabs duloxetine 30 mg capsule,delayed 30 mg PO DAILY #30 caps 07/22/23 07/30/23 Unknown Rx release Allergies Allergy/AdvReac Type Severity Reaction Status Date / Time No Known Allergies Allergy Verified 07/21/23 11:24 Current Medications Generic Name Dose Route Start Last Admin Trade Name Freq PRN Reason Stop Dose Admin Acetaminophen 650 mg 07/29/23 23:02 07/30/23 11:05 Acetaminophen 325 Mg Tablet PO 650 mg Q6H PRN Administration Mild pain or temp > 100.4 Duloxetine HCl 30 mg 07/30/23 09:00 07/30/23 11:04 Duloxetine 30 Mg Capsule PO 30 mg DAILY CARLITA Administration Dextrose/Lactated Ringer's 1,000 mls @ 125 mls/hr 07/29/23 23:15 07/30/23 14:45 Dextrose 5%-Lactated Ringers IV Infused .Q8H CARLITA Infusion Ampicillin Sodium 1,000 mg/ 50 mls @ 100 mls/hr 07/30/23 03:15 07/30/23 15:49 Sodium Chloride IV 100 mls/hr Q4H CARLITA Administration Protocol Oxytocin 30 unit in 500 mls @ 1 mls/hr 07/29/23 23:15 07/30/23 14:45 Pitocin IV 7 milliunit/min .Q24H CARLITA 7 mls/hr Titration Protocol 1 MILLIUNIT/MIN Lactated Ringer's 1,000 mls @ 999 mls/hr 07/30/23 15:35 07/30/23 15:42 Lactated Ringers IV 999 mls/hr .Q1H1M PRN Administration See label comments Ropivacaine 100 mg in 50 mls @ 10 mls/hr 07/30/23 15:45 07/30/23 16:22 Naropin Syringe EPIDURAL 10 mls/hr .Q5H CARLITA Administration Labetalol HCl 20 mg 07/30/23 07:32 07/30/23 15:45 Labetalol 5 Mg/Ml Sdv 20ml IVP 20 mg PRN PRN Administration HYPERTENSION Protocol PFSH Anesthesia Medical History Psychiatric care Low libido PCOS (polycystic ovarian syndrome) No pertinent past medical history neghx: htn,dm,thyroid,dvt/pe Surgical History Hx of wisdom tooth extraction (~04/2021) Family History Grandfather Diabetes Maternal Family/Other Diabetes Maternal Uncle Grandmother Hypertension Maternal Stroke Maternal Mother Hypertension Denies family history of Colon cancer Ovarian cancer Heart disease Hypercholesteremia Breast cancer Uterine cancer Female Reproductive History : 1 Data Anesthesia 07/30/23 08:03 07/30/23 08:03 Short CBC 07/29/23 07/30/23 Range/Units 23:20 08:03 WBC 12.42 H 11.54 H (3.29-11.43) 10^3/uL Hgb 12.20 12.40 (11.27-16.99) g/dL Hct 35.5 L 37.2 (36-47) % MCV 87.2 88.2 (85-98) fl Plt Count 205 205 (157-399) 10^3/cmm Neut % (Auto) 69.5 67.9 % Neut # (Auto) 8.63 H 7.84 H (1.8-7.7) 10^3/uL BMP 07/30/23 08:03 Sodium 135 L Potassium 4.4 Chloride 105 Carbon Dioxide 22 BUN 14 Creatinine 0.5 Glucose 91 Calcium 8.5 Liver Function 07/30/23 Range/Units 08:03 Total Bilirubin 0.2 (0.15-1.2) mg/dL AST 12 (0-32) U/L ALT 8 (0-33) U/L Alkaline Phosphatase 240 H (35-105) U/L Albumin 3.2 L (3.5-5.2) g/dL Urine 07/30/23 Range/Units 08:03 Urine Color Yellow (Yellow) Urine Appearance Clear (CLEAR) Urine pH 6 (5-7) Ur Specific [place] 1.020 (1.005-1.030) Urine Protein Trace (Negative) Urine Glucose (UA) Norm (Normal) Urine Ketones Negative (Negative) Urine Nitrate Negative (Negative) Urine Bilirubin Neg (Negative) Ur Leukocyte Esterase Negative (Negative) Urine RBC 0-4 H (0-2) /hpf Urine WBC 0-4 H (0-5) /hpf Blood Bank 07/29/23 23:20 Blood Type O Positive Rho(D) Type Rh positive Antibody Screen Negative Cardiac Studies: No Data to Display
--- NOTE | 2023-07-30 17:19 | P.ANES_ITS ---
Anesthesia Procedures Procedure/Date: 07/30/23 epidural Procedure Narrative: epidural complete, bolus given, epidural pump initiated with CODING DIRECTOR education given, vitals taken during procedure and satisfactory throughout, patient admits to decrease pain, report of procedure to OB RN Epidural: Time Out Performed: Yes Consents Signed: Procedure Consent Consent: requested by attending/covering physician, from patient, risks and benefits reviewed and patient agrees to proceed Lumbar Level: L3-L4 Ep idural position: sitting Epidural procedure: sterile prep of area, 1% lidocaine to numb the area (3 mL), 18 g needle, negative for paresthesia passed, neg for paresthesia, test dose given, 1.5% xylocaine 1:200k epi (5 mL), 0.2% Ropivacaine bolus ml (5 mL), placed PCEA, no systemic response, sterile dressing applied, L.U.D. no apparent complications and 0.2% Ropiavacaine @ mls/hr (13 mL/hr)
--- NOTE | 2023-07-30 18:13 | PM.DELIVERY ---
Delivery Note: Date of delivery: July 30, 2023 Pre-delivery diagnoses: Term Premature rupture of membranes Post-delivery diagnoses: Same Procedure: Spontaneous vaginal delivery Delivering Physician: Tom Clifton MD Estimated blood loss (mL): 300 Findings: Term Female infant, weight 2690 grams, Apgars 8/9 Post Delivery Diagnoses: Premature rupture of membranes: Qualifiers: PROM onset of labor timing: onset of labor within 24 hours of rupture PROM gestational age: full term Qualified Code(s): O42.02 - Full-term premature rupture of membranes, onset of labor within 24 hours of rupture Delivery: The patient was noted to be complete and pushing, so was placed in the dorsal lithotomy position, prepped and draped in the usual sterile fashion for a vaginal delivery. Pt. Noted to have epidural anesthesia. At 1800 the patient delivered a viable 40 weeks female infant weighing 2690 g with scores of 8 and 9 at one and five minutes, respectively. The vertex was delivered spontaneously over intact. The patient was asked to push and the head delivered spontaneously in the SARIKA position, over an intact perineum. A nuchal cord was checked and 1 noted, and relieved around head. The anterior shoulder delivered easily and the posterior shoulder followed. The remainder of the infant was easily delivered and the oropharynx and nasopharynx was bulb suctioned. The infant was noted to have spontaneous cry and spontaneous movement of all four extremities. The cord was clamped x 2 and cut and noted to have 2 arteries and one vein. The was passed to the mother's abdomen where nursing personnel were in attendance. Cord blood sample was then obtained. The placenta delivered intact spontaneously and the uterus was explored. 20 units of Pitocin was placed in the IV bag to firm the uterus. Examination of the cervix and vaginal vault did not reveal any lacerations. Examination of the perineum showed no laceration. The patient tolerated this procedure well, and recovered in L&D with her in their LDR room. All sponge and needle counts were correct. History History History 1 Term Miscarriages/Ectopic Living Children A&P Assessment and plan (1) Term delivered: (2) Premature rupture of membranes: Qualifiers: PROM onset of labor timing: onset of labor within 24 hours of rupture PROM gestational age: full term Qualified Code(s): O42.02 - Full-term premature rupture of membranes, onset of labor within 24 hours of rupture Plan observation Coding Level of Care Code Acute Code for Chg Fwd Diagnoses Full-term premature rupture of membranes with onset of labor within 24 hours of rupture O42.02 PROM onset of labor timing: onset of labor within 24 hours of rupture PROM gestational age: full term Term delivered O80
[2023-07-30] MEDS: ibuprofen 800 mg tablet PO (21:15)
[2023-07-31 01:45] VITALS: BP 119/78; PULSE 97; RESP 16; TEMP 36.8; O2SAT 97
[2023-07-31 04:58] VITALS: BP 124/78; PULSE 99; RESP 18; TEMP 36.6; O2SAT 98
[2023-07-31 06:38] LABS: Hematocrit 32.2 % (36-47); Mean Corpuscular HGB Conc 33.9 g/dL (30-55); Mean Corpuscular Hemoglobin 29.9 pg (27-33); Mean Corpuscular Volume 88.2 fl (85-98); Mean Platelet Volume 11.1 fL (7.4-10.4); Platelet Count 183 10^3/cmm (157-399); Red Blood Count 3.65 10^6/uL (3.85-5.65); Red Cell Distribution Width 12.9 % (12.1-15.1); White Blood Count 13.57 10^3/uL (3.29-11.43)
--- NOTE | 2023-07-31 08:00 | ANE.PACU2 ---
Inpatient post-anesthesia follow up: Airway intact: Yes Vital signs: Temperature 98.1 F Pulse Rate 91 Respiratory Rate 18 Blood Pressure 137/89 Pulse Oximetry 97 Oxygen Delivery Me thod Room Air Oxygen Flow Rate Fraction of Inspir ed Oxygen Hydration adequate: Yes Nausea and vomiting: No Pain level: 1 Mental status: Baseline Epidural Start/End: Epidural Start Date: 07/30/23 Epidural Start Time: 16:58 Epidural End Date: 07/30/23 Epidural End Time: 18:13
[2023-07-31] MEDS: duloxetine 30 mg Capsule PO (09:23)
[2023-07-31] MEDS: PRENATAL VIT NO.130/IRON/FOLIC 1 EACH TABLET PO (09:23)
[2023-07-31] MEDS: ibuprofen 800 mg tablet PO ×2 (09:23→15:46)
[2023-07-31] MEDS: docusate sodium 100 mg Capsule PO (09:23)
[2023-07-31 09:29] VITALS: BP 130/80; PULSE 99; RESP 17; TEMP 36.8
[2023-07-31 15:47] VITALS: BP 134/79; PULSE 99; TEMP 36.8
--- NOTE | 2023-07-31 17:28 | PM.OBGYDC ---
Discharge Providers [employer] Date of Admission: 07/30/23 00:23 Date of Discharge: 07/31/23 Attending Provider at Admission: Tom Clifton MD Attending Provider at Discharge: Tom Clifton MD Primary Care Provider: Tyler Maynard MD Diagnoses at Discharge Discharge Diagnosis (1) Premature rupture of membranes: Status: Acute Qualifiers: PROM onset of labor timing: onset of labor within 24 hours of rupture PROM gestational age: full term Qualified Code(s): O42.02 - Full-term premature rupture of membranes, onset of labor within 24 hours of rupture (2) Term : Status: Acute Reason for Visit Reason for Visit: possible rupture of membranes Hospital Course Hospital Course Mrs. Leblanc 23-year-old female G1, P0 with an estimated gestational age at 40 weeks. Came to labor and delivery with premature rupture membranes, she progressed to have a spontaneous vaginal delivery without complications. Overnight observation was uneventful. She is afebrile and hemodynamically stable day 1. Tolerating diet well. Ambulating without difficulty. She was counseled regarding pelvic rest for 6 weeks (no sex, no tampons, no vaginal douches). Return to the emergency room if any fever, increased bleeding or pain. Information Peripartum Data: Infant Delivery Method: Vaginal Physical Exam Narrative: GA; alert and oriented x 3 HEENT: normal Breasts: engorged Nipples - skin intact Lungs; clear to auscultation Heart: regular rhythm, no murmurs. Abd: Appropriately tender. BS+. Uterine fundus below umbilicus. No Fundal Tenderness. Perineum: normal lochia. Extremities: no edema, no cyanosis, no tenderness. History History History 1 Term Miscarriages/Ectopic Living Children Discharge Data Studies Completed and Pending Laboratory Results WBC 13.57 10^3/uL (3.29-11.43) H 07/31/23 06:15 RBC 3.65 10^6/uL (3.85-5.65) L 07/31/23 06:15 Hgb 10.90 g/dL (11.27-16.99) L 07/31/23 06:15 Hct 32.2 % (36-47) L 07/31/23 06:15 MCV 88.2 fl (85-98) 07/31/23 06:15 MCH 29.9 pg (27-33) 07/31/23 06:15 MCHC 33.9 g/dL (30-55) 07/31/23 06:15 RDW 12.9 % (12.1-15.1) 07/31/23 06:15 Plt Count 183 10^3/cmm (157-399) 07/31/23 06:15 MPV 11.1 fL (7.4-10.4) H 07/31/23 06:15 Neut % (Auto) 67.9 % 07/30/23 08:03 Lymph % (Auto) 23.2 % 07/30/23 08:03 [place] % (Auto) 7.7 % 07/30/23 08:03 Eos % (Auto) 0.7 % 07/30/23 08:03 Baso % (Auto) 0.2 % 07/30/23 08:03 Neut # (Auto) 7.84 10^3/uL (1.8-7.7) H 07/30/23 08:03 Lymph # (Auto) 2.7 10^3/uL (0.8-4.8) 07/30/23 08:03 [place] # (Auto) 0.9 10^3/uL (0.2-0.9) 07/30/23 08:03 Eos # (Auto) 0.1 10^3/uL (0.0-0.8) 07/30/23 08:03 Baso # (Auto) 0.0 10^3/uL (0.0-0.1) 07/30/23 08:03 Nucleated RBC % (auto) 0 % 07/30/23 08:03 Nucleated RBCs # 0.0 /100WBC 07/30/23 08:03 Sodium 135 mmol/L (136-145) L 07/30/23 08:03 Potassium 4.4 mmol/L (3.5-5.1) 07/30/23 08:03 Chloride 105 mmol/L (98-107) 07/30/23 08:03 Carbon Dioxide 22 mmol/L (22-29) 07/30/23 08:03 Anion Gap 12.4 (5-19) 07/30/23 08:03 BUN 14 mg/dL (6-20) 07/30/23 08:03 Creatinine 0.5 mg/dL (0.5-0.9) 07/30/23 08:03 GFR Calculation 152.9 mL/min (90-130) H 07/30/23 08:03 Glucose 91 mg/dL (65-115) 07/30/23 08:03 Calculated Osmolality 280 mOsm/kg (285-295) L 07/30/23 08:03 Uric Acid 3.5 mg/dL (2.4-5.7) 07/30/23 08:03 Calcium 8.5 mg/dL (8.5-10.5) 07/30/23 08:03 Total Bilirubin 0.2 mg/dL (0.15-1.2) 07/30/23 08:03 AST 12 U/L (0-32) 07/30/23 08:03 ALT 8 U/L (0-33) 07/30/23 08:03 Alkaline Phosphatase 240 U/L (35-105) H 07/30/23 08:03 Total Protein 6.2 g/dL (6.6-8.7) L 07/30/23 08:03 Albumin 3.2 g/dL (3.5-5.2) L 07/30/23 08:03 Globulin 3.0 g/dL (1.3-4.6) 07/30/23 08:03 Insulin-like GF I Positive 07/29/23 22:50 Urine Color Yellow (Yellow) 07/30/23 08:03 Urine Appearance Clear (CLEAR) 07/30/23 08:03 Urine pH 6 (5-7) 07/30/23 08:03 Ur Specific [place] 1.020 (1.005-1.030) 07/30/23 08:03 Urine Protein Trace (Negative) 07/30/23 08:03 Urine Glucose (UA) Norm (Normal) 07/30/23 08:03 Urine Ketones Negative (Negative) 07/30/23 08:03 Urine Blood 2+ (Negative) H 07/30/23 08:03 Urine Nitrate Negative (Negative) 07/30/23 08:03 Urine Bilirubin Neg (Negative) 07/30/23 08:03 Urine Urobilinogen Norm mg/dL (Negative) 07/30/23 08:03 Ur Leukocyte Esterase Negative (Negative) 07/30/23 08:03 Urine RBC 0-4 /hpf (0-2) H 07/30/23 08:03 Urine WBC 0-4 /hpf (0-5) H 07/30/23 08:03 Ur Squamous Epith Cells 0-4 /hpf (0-5) H 07/30/23 08:03 Ur Transition Epith Cell 0-4 /hpf 07/30/23 08:03 Amorphous Sediment Trace /hpf 07/30/23 08:03 Urine Bacteria Trace /hpf (NONE) 07/30/23 08:03 Hyaline Casts 0-4 /lpf H 07/30/23 08:03 Fine Granular Casts Rare /lpf 07/30/23 08:03 Urine Mucus Trace /hpf 07/30/23 08:03 U Random Total Protein 35 mg/dL 07/30/23 08:03 Urine Creatinine 136 mg/dL (28-217) 07/30/23 08:03 Protein/Creatinin Ratio 0.26 mg/mg CR 07/30/23 08:03 Fluid pH (paper) Positive H 07/29/23 22:56 Blood Type O Positive 07/29/23 23:20 Rho(D) Type Rh positive 07/29/23 23:20 Antibody Screen Negative 07/29/23 23:20 Vitals Last Vital Signs Temp 98.2 F 07/31/23 15:47 Pulse 99 07/31/23 15:47 Resp 17 07/31/23 09:29 BP 134/79 07/31/23 15:47 Pulse Ox 98 07/31/23 04:58 O2 Del Method Room Air 07/31/23 04:58 Results Labs OB ([facility]): Obstetrics US 07/07/23 Blood Type O Positive 07/29/23 Antibody Screen Negative 07/29/23 Hct 32.2 % (36-47) L 07/31/23 Hgb 10.90 g/dL (11.27-16.99) L 07/31/23 Rho(D) Type Rh positive 07/29/23 Plt Count 183 10^3/cmm (157-399) 07/31/23 Hep Bs Antigen Non-reactive (Nonreactive) 01/06/23 Hepatitis C Antibody Non-reactive (Nonreactive) 01/06/23 Rubella IgG Antibody 365.7 IU/mL (0.0-10.0) H 01/06/23 HIV 1&2 Ab & HIV 1 Ag Non-reactive (Non-Reactiv) 01/20/23 TSH 2.05 uIU/mL (0.27-4.20) 12/11/21 Free T4 1.10 ng/dL (0.82-1.77) 12/11/21 C.trachomatis RNA (TMA) Not detected (NOT DETECTED) 01/20/23 N.gonorrhoeae RNA (TMA) Not detected (NOT DETECTED) 01/20/23 T. vaginalis Amp RNA Not detected (NOT DETECTED) 01/20/23 Chlamydia/GC Comment See note 01/20/23 Glucose 1 Hr 50 gm 87 mg/dL (85-140) 04/09/23 Gest Glucose Tolerance 109 mg/dL (70-139) 01/08/23 Hemoglobin A1c 5.1 % (4.0-6.0) 01/06/20 Uric Acid 3.5 mg/dL (2.4-5.7) 07/30/23 Ser , Semi-Qnt 135.10 mIU/mL 11/21/22 Urine Opiates Screen Negative ng/mL (Negative) 01/06/23 Ur Barbiturates Screen Negative ng/mL (Negative) 01/06/23 Ur Phencyclidine Scrn Negative ng/mL (Negative) 01/06/23 Ur Amphetamines Screen Negative ng/mL (Negative) 01/06/23 U Benzodiazepines Scrn Negative ng/mL (Negative) 01/06/23 Urine Cocaine Screen Negative ng/mL (Negative) 01/06/23 U Marijuana (THC) Screen Negative ng/mL (Negative) 01/06/23 Micro Urine Specimen 03/05/23 Pap Smear Interpret See note 07/05/21 Free Testosterone 9.6 pg/mL (0.2-5.0) H 01/06/20 Discharge Plan Discharge Patient Disposition: Home Condition: Stable Prescriptions: New ferrous sulfate [Iron (ferrous sulfate)] 325 mg (65 mg iron) tablet 325 mg PO BID Qty: 60 0RF acetaminophen 325 mg capsule 325 mg PO Q4H PRN (Reason: fever or pain) Qty: 60 0RF docusate sodium [Colace] 100 mg capsule 100 mg PO BID Qty: 60 0RF ibuprofen 800 mg tablet 800 mg PO TID PRN (Reason: pain) Qty: 60 0RF Continued clobetasol 0.05 % ointment 1 applic topical BID PRN (Reason: vulvitits) Qty: 30 0RF Rx Instructions: use a thin film DHA 200 mg capsule 200 mg PO DAILY metoclopramide HCl [Reglan] 10 mg tablet 10 mg PO Q6H PRN (Reason: nausea and vomiting) Qty: 60 0RF duloxetine 30 mg capsule,delayed release(DR/EC) 30 mg PO DAILY Qty: 30 2RF Discharge Orders: Discharge Order (Routine); Ordered 07/31/23 Ordered By: Tom Clifton Discharge Diet: Usual diet Discharge Activity: Limit activity as instructed Patient Instructions: Depression (DC), Opioid Safety (DC), Preeclampsia and Eclampsia After Delivery (GEN), Hemorrhage (DC), OB Discharge Report, OB Food/Drug Interaction Guide, Opioid Safety, OB Home Care, OB Vaginal Deliveries - [facility], Abnormal Bleeding Activity Restrictions/Additional Instructions: 1. Please call [facility] on next working day to make your appointment in 6 weeks. 2. Please stay home until you come back to the clinic on first post-hospatilization check up. 3. Please follow instructions on your medications CAREFULLY. 4. If you have abdominal incision, do not cover it unless dressing is necessary because of drainage. OK to shower, but avoid bath. Leave steri-strips until they fall off. If they are still on one week after surgery, you may remove them. 5. If you had vaginal surgery or vaginal repair, Dr. Clifton may instruct you to take SITZ bath. 6. Yellow, blood tinged odorous vaginal discharge is usually normal after hysterectomy or vaginal surgeries. 7. No SEXUAL INTERCOURSE, tampons, or douches until you are completely released from the post-operative care. 8. Avoid constipation by eating right and maybe using some Metamucil or Milk of Magnesia. 9. All prescription refills are given during the working hours. Please do no wait till it runs out. Call the clinic at [phone] before your medication runs out. The clinic will get in touch with your doctor to prescribe medications if necessary. 10. Please remain within 40 mile radius from our hospital because emergencies do happen now and then during the post-operative period. 11. If you have stairs at home, take one step at a time slowly and minimize the number of trips. It helps to stay in one floor for the next few days. No lifting except what you can lift by one hand until you are released from the post-operative care. 12. Driving is discouraged until you are well healed. It may be 3-4 weeks before you feel strong enough to drive. You should be able to turn and look through the rear window without pain and you should be able to push the brake pedal very hard without pain before you drive. No fast rules, but SAFETY should be your primary concern. DO NOT drive if you are on sedating medications such as narcotics. 13. Call the clinic (during working hours) to make urgent appointment or go to the Emergency room, if any of the following occurs: i. Vaginal bleeding becomes heavy, more than a period. ii. Incision becomes red and sore, or drains pus. iii. Your TEMPERATURE is over 100.4F or you have chill. iv. IV site becomes red and swollen (a little ``knot?? is usually OK) v. Persistent nausea and vomiting vi. Persistent constipation or diarrhea vii. Rash or allergic reaction to medications. Discharge Attestations [employer] Time Spent in Discharge Care*: greater than 30 min Coding Level of Care Code Acute Code for Chg Fwd Diagnoses Full-term premature rupture of membranes with onset of labor within 24 hours of rupture O42.02 PROM onset of labor timing: onset of labor within 24 hours of rupture PROM gestational age: full term Term Z34.90
[2023-07-31 20:45] VITALS: BP 137/89; PULSE 91; RESP 18; TEMP 36.7; O2SAT 97
== END 2023-07-31 21:00 | disposition home or self-care (01) | DRG 807 ==
LOC: OPOB 05:43 → OBGYN 05:43
PROVIDERS: Admitting Provider Obstetrics & Gynecology; PCP Family Medicine; Visit Provider Obstetrics & Gynecology
DX: O42.02 Full-term premature rupture of membranes, onset of labor within 24 hours of rupture (principal); Z37.0 Single live birth; O69.81X0 Labor and delivery complicated by cord around neck, without compression, not applicable or unspecified; Z3A.40 40 weeks gestation of pregnancy; O99.344 Other mental disorders complicating childbirth; F41.8 Other specified anxiety disorders; O99.824 Streptococcus B carrier state complicating childbirth
CPT/HCPCS: 36415; 59025; 59409; 80053; 81001; 82570; 83986; 84112; 84156; 84550; 85025; 85027; 86850; 86900; 98960; 99211; J0290; J2590; J2795; J3490; J7120; J7121

== ENCOUNTER 2023-12-13 21:05 | Emergency (ER) | payer OTHER, SELFPAY ==
[2023-12-13 21:40] VITALS: BP 150/95; PULSE 100; RESP 17; TEMP 36.9; O2SAT 99; BMI 32.3
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
[2023-12-14 03:46] VITALS: BP 153/64; PULSE 75; RESP 15; O2SAT 98
[2023-12-14 04:04] VITALS: RESP 19
[2023-12-14] MEDS: oxyCODONE-APAP 5-325 mg Tablet 2 TAB PO (04:04)
[2023-12-14 06:22] VITALS: BP 137/85; PULSE 78; RESP 15; O2SAT 98
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
[2023-12-14 07:00] VITALS: BP 122/77; PULSE 71; RESP 17; O2SAT 98
[2023-12-14 07:56] VITALS: BP 125/97; PULSE 71; O2SAT 98
== END 2023-12-14 07:59 | disposition home or self-care (01) ==
PROVIDERS: Emergency Provider Emergency Medicine; PCP Family Medicine
DX: S06.0XAA Concussion with loss of consciousness status unknown, initial encounter (principal); S80.02XA Contusion of left knee, initial encounter; S70.02XA Contusion of left hip, initial encounter; S20.219A Contusion of unspecified front wall of thorax, initial encounter; V89.2XXA Person injured in unspecified motor-vehicle accident, traffic, initial encounter
CPT/HCPCS: 70450; 70486; 71045; 73502; 73562; 99284

== ENCOUNTER 2024-03-09 13:44 | Emergency (ER) | payer SELFPAY ==
[2024-03-09 13:54] VITALS: BP 135/82; PULSE 88; TEMP 36.5; O2SAT 99
--- NOTE | 2024-03-09 14:36 | W.ED.BACK ---
HPI - Back Pain/Injury General: Chief Complaint: Back Pain/Injury Stated Complaint: chest pain Time Seen by Provider: 03/09/24 14:20 Source: patient Mode of arrival: ambulatory Limitations: no limitations History of Present Illness: Patient is a 24-year-old female presents to ED today with a complaint of back pain. Patient states she was lying down breast-feeding her infant and when she leaned forward, she immediately noticed pain to her thoracic back. She feels that the pain seems to come and go and is worse with movement and seems to catch . Patient states her pain does not seem to radiate to her abdomen or chest. She states pain seems to be to the left side of her thoracic region. States she had a history of kidney stones as a child but none since. She is not having any urinary complaints. She arrives with completely normal vital signs. MD elicited complaint: back pain Onset (ago): hour(s) Timing: constant Severity: moderate Pain scale (0-10): 6 Similar Symptoms Previously: No Location: left upper back Radiation: none Exacerbating factors: movement Relieving factors: other (sitting still) Context: other (began after leaning forward) Associated symptoms: Reports no associated symptoms; Deny abdominal pain, difficulty walking, dysuria, fever(s) or hematuria Work related injury: No Related Data Previous Rx's Medication Instructions Recorded clobetasol 0.05 % topical ointment 1 applic topical BID PRN vulvitits 08/27/22 #30 grams acetaminophen 325 mg capsule 325 mg PO Q4H PRN fever or 07/31/23 pain #60 caps venlafaxine 37.5 mg 37.5 mg PO DAILY #30 caps 01/15/24 capsule,extended release 24 hr (Effexor XR) ibuprofen 800 mg tablet 800 mg PO Q8H PRN pain #20 tabs 03/09/24 methocarbamol 500 mg tablet 1,000 mg (2 x 500 mg) PO Q8H #30 03/09/24 tabs methylprednisolone 4 mg tablets in See Rx Instructions PO .COMPLEX 03/09/24 a dose pack (Medrol (Adelso)) #21 ea Allergies Allergy/AdvReac Type Severity Reaction Status Date / Time No Known Allergies Allergy Verified 03/09/24 13:59 Review of Systems Const: Denies: fever(s) Card: Denies: chest pain Resp: Denies: dyspnea GI: Denies: abdominal pain : Denies: flank pain, dysuria, hematuria or pelvic pain Musc: Reports: back pain; Denies: neck pain, extremity pain, extremity swelling, joint pain or joint swelling Neuro: Denies: numbness in extremities, weakness in extremities, sensory changes or difficulty walking PFS ED PFSH: Medical History Term delivered Low libido PCOS (polycystic ovarian syndrome) No pertinent past medical history neghx: htn,dm,thyroid,dvt/pe Surgical History Hx of wisdom tooth extraction (~04/2021) Family History Grandfather Diabetes Maternal Family/Other Diabetes Maternal Uncle Grandmother Hypertension Maternal Stroke Maternal Mother Hypertension Denies family history of Colon cancer Ovarian cancer Heart disease Hypercholesteremia Breast cancer Uterine cancer Social History Smoking and tobacco/nicotine status: unknown if used tobacco/nicotine Physical Exam Const: COMMON NORMALS: no acute distress, patient oriented x3, no limitations, alert and well nourished GENERAL APPEARANCE: cooperative NUTRITIONAL APPEARANCE: obese ORIENTATION/CONSCIOUSNESS: Yes awake, Yes oriented to person, Yes oriented to place and Yes oriented to time Chest: COMMONS NORMALS: normal inspection of the chest and normal palpation of entire chest wall Resp: COMMON NORMALS: normal respiratory effort and clear to auscultation bilaterally AUSCULTATION: clear to auscultation bilaterally Cardio: COMMON NORMALS: regular rate and regular rhythm RATE: regular rate RHYTHM: regular rhythm GI: COMMON NORMALS: Normal to inspection, nondistended, normoactive bowel sounds present, Soft to palpation, non-tender, No hepatosplenomegaly present and no masses PALPATION: Yes Soft to palpation and Yes No hepatosplenomegaly present : COMMON NORMALS: Yes no CVA tenderness BLADDER/KIDNEY EXAM: Yes no CVA tenderness Back/Pelvis: COMMON NORMALS: no CVA tenderness, thoracic and lumbar spine normal to inspection and straight leg raise negative bilaterally THORACIC SPINE/UPPER BACK: Yes paraspinal muscle tenderness Thoracic paraspinal muscle tenderness: left LUMBAR SPINE/LOWER BACK: Yes normal to inspection, No lumbar spinal tenderness and No paraspinal muscle tenderness PELVIS: Yes buttocks normal and No sciatic notch tenderness SACROILIAC JOINTS: Yes SI joints normal SACRUM: no tenderness COCCYX: no tenderness BACK IMAGE (FEMALE): 1. TTP Extremity: COMMON NORMALS: normal to inspection and capillary refill normal GENERAL: Yes normal exam except as noted Neuro: COMMON NORMALS: patient oriented x3, moves all extremities, no focal motor deficits, no sensory deficits noted and gait normal SENSORIUM/ORIENTATION: Yes alert, Yes oriented to person, Yes oriented to place and Yes oriented to time Skin: COMMON NORMALS: no rashes or lesions noted GENERAL SKIN EXAM: no rashes or lesions noted Course Vital Signs: Vital signs: Vital Signs Temperature 97.7 F 03/09/24 13:54 Pulse Rate 88 03/09/24 13:54 Respiratory Rate 16 03/09/24 15:33 Blood Pressure 135/82 03/09/24 13:54 Pulse Oximetry 99 03/09/24 13:54 Oxygen Delivery Me thod Room Air 03/09/24 13:54 MDM - Back Pain/Injury Medical Decision Making Patient clinically appears well. Vital signs are stable. UA is unremarkable. Patient was treated with IM medications here and will place on similar medications at home over the next several days. Return to ED precautions given. Emergent imaging was thought not to be necessary. I do not have any suspicion for emergent or life-threatening etiology at this time for her back discomfort including pneumothorax, dissection, aneurysm, etc. Return precautions were discussed with patient. Differential Diagnosis Likely thoracic back pain Medical Records I reviewed the patient's medical records. Labs I reviewed the patient's lab results. Laboratory Results Urine Color Yellow (Yellow) 03/09/24 14:43 Urine Appearance Clear (CLEAR) 03/09/24 14:43 Urine pH 5.5 (5-7) 03/09/24 14:43 Ur Specific Lamar 1.015 (1.005-1.030) 03/09/24 14:43 Urine Protein Negative (Negative) 03/09/24 14:43 Urine Glucose (UA) Negative (Normal) 03/09/24 14:43 Urine Ketones Negative (Negative) 03/09/24 14:43 Urine Blood Negative (Negative) 03/09/24 14:43 Urine Nitrate Negative (Negative) 03/09/24 14:43 Urine Bilirubin Negative (Negative) 03/09/24 14:43 Urine Urobilinogen 0.2 mg/dL (Negative) 03/09/24 14:43 Ur Leukocyte Esterase Negative (Negative) 03/09/24 14:43 Urine RBC 0-2 /hpf (0-2) 03/09/24 14:43 Urine WBC 0-5 /hpf (0-5) 03/09/24 14:43 Ur Squamous Epith Cells 0-5 /hpf (0-5) 03/09/24 14:43 Amorphous Sediment Not Reportable 03/09/24 14:43 Urine Bacteria None seen /hpf (NONE) 03/09/24 14:43 Hyaline Casts 0-4 /lpf H 03/09/24 14:43 No radiology studies performed this visit Discharge Plan Discharge Patient Disposition: Home Clinical Impression: Strain of thoracic back region Condition: Stable Prescriptions: New ibuprofen 800 mg tablet 800 mg PO Q8H PRN (Reason: pain) Qty: 20 0RF methylprednisolone [Medrol (Adelso)] 4 mg tablets,dose pack See Rx Instructions .ROUTE .COMPLEX Qty: 21 0RF Rx Instructions: orally per package directions methocarbamol 500 mg tablet 1,000 mg PO Q8H Qty: 30 0RF Discontinued meloxicam 15 mg tablet 15 mg PO DAILY Qty: 30 11RF Rx Instructions: take with food No Action clobetasol 0.05 % ointment 1 applic topical BID PRN (Reason: vulvitits) Qty: 30 0RF Rx Instructions: use a thin film venlafaxine [Effexor XR] 37.5 mg capsule,extended release 24hr 37.5 mg PO DAILY Qty: 30 11RF acetaminophen 325 mg capsule 325 mg PO Q4H PRN (Reason: fever or pain) Qty: 60 0RF Discharge Orders: Discharge ED (Routine); Ordered 03/09/24 Ordered By: Mamta Lamas Referrals: Tlyer Maynard MD [Primary Care Provider] - Patient Instructions: Thoracic Pain (ED), Muscle Spasm (ED) Activity Restrictions/Additional Instructions: As we discussed, you need to return to the emergency department for worsening back pain, abdominal pain, chest pain, difficulty breathing, or any other concerns you may have. We will treat you with anti-inflammatories, steroids, muscle relaxers. Please follow-up with primary care in 1 to 2 weeks if symptoms do not seem to be improving. Coding Level of Care Code ED Supervisor [employer] for Wayne Underwood
[2024-03-09] MEDS: ketorolac 60 mg/2 mL INJ IM (14:48)
[2024-03-09] MEDS: orphenadrine 30 mg/mL Inj 2 mL 60 MG IM (14:49)
[2024-03-09] MEDS: dexamethasone 10 mg/mL INJ IM (14:49)
[2024-03-09 14:59] LABS: Bilirubin Urine Negative (Negative); Blood Urine Negative (Negative); Glucose Urine UA Negative (Normal); Ketones Urine Negative (Negative); Leukocyte Esterase Urine Negative (Negative); Nitrate Urine Negative (Negative); Protein Urine Negative (Negative); Specific Gravity, Urine 1.015 (1.005-1.030); Urine Appearance Clear (CLEAR); Urine Color Yellow (Yellow); Urobilinogen Urine 0.2 mg/dL (Negative); pH Urine 5.5 (5-7)
[2024-03-09 15:01] LABS: Add Urine Microscopic? YES; Bacteria Urine None Seen /hpf; Hyaline Casts Urine 0-4 /lpf; RBC Urine 0-2 /hpf (0-2); Squamous Epithelial Cell Urine 0-5 /hpf (0-5); WBC Urine 0-5 /hpf (0-5)
[2024-03-09 15:33] VITALS: RESP 16
[2024-03-09] MEDS: morphine 4 mg/mL SDV 1 mL IM (15:33)
[2024-03-09 15:52] VITALS: BP 105/71; PULSE 58; O2SAT 98
== END 2024-03-09 15:54 | disposition home or self-care (01) ==
PROVIDERS: Emergency Provider Physician Assistant; PCP Family Medicine
DX: S29.012A Strain of muscle and tendon of back wall of thorax, initial encounter (principal); X58.XXXA Exposure to other specified factors, initial encounter
CPT/HCPCS: 81001; 96372; 99284; J1100; J1885; J2270; J2360

== ENCOUNTER → 2024-08-04 09:48 | Outpatient (BNVA) | payer BC, MEDICAID, SELFPAY | PROVIDERS: PCP Family Medicine; Visit Provider Family Medicine | DX: R51.9 Headache, unspecified (principal); R10.9 Unspecified abdominal pain; R11.10 Vomiting, unspecified; R19.7 Diarrhea, unspecified | CPT/HCPCS: 80053; 83690; 85025; 86003; 86008; 86140 ==

== ENCOUNTER 2024-08-18 11:52 | Outpatient (CLI) | payer BC, MEDICAID, SELFPAY ==
--- NOTE | 2024-08-18 13:00 | CTR_ITS ---
PROCEDURE INFORMATION: Exam: CT Abdomen And Pelvis With Contrast Exam date and time: 08/18/2024 1:14 PM Age: 24 years old Clinical indication: Abdominal pain; Generalized abd pain that sometimes is located more lower. PT states she gets sharp cramps in lower/vaginal area. Nausea and vomiting. ; Additional info: Abd pain/ vomitting/ diarrhea - persistent TECHNIQUE: Imaging protocol: Computed tomography of the abdomen and pelvis with contrast. Axial, coronal and sagittal reformatted images were created and reviewed. Radiation optimization: All CT scans at this facility use at least one of these dose optimization techniques: automated exposure control; mA and/or kV adjustment per patient size (includes targeted exams where dose is matched to clinical indication); or iterative reconstruction. Contrast material: OMNI 350; Contrast volume: 100 ml; Contrast route: INTRAVENOUS (IV); COMPARISON: CR XR hip LT 2-3V wo/w pel* [id number] 12/14/2023 3:45 AM RADIATION DOSE METRICS: Total DLP (mGy-cm): 495.2 FINDINGS: Liver: Unremarkable. Gallbladder and biliary ducts: No radiodense gallstones. No biliary ductal dilatation. Pancreas: Unremarkable. Spleen: Unremarkable. Adrenal glands: Normal. No mass. Kidneys and ureters: No mass. No radiodense calculi. No hydronephrosis. Stomach and bowel: No bowel wall thickening. No obstruction. No pneumatosis. Appendix: Normal. Intraperitoneal space: No free fluid. No organized fluid collection. No free air. Vasculature: Unremarkable. No aneurysm. Lymph nodes: Small mesenteric lymph nodes, nonspecific in appearance. No pathologically enlarged lymph nodes. Urinary bladder: Unremarkable as visualized. Reproductive: Unremarkable. Bones/joints: No acute osseous abnormality. Soft tissues: Tiny, fat containing umbilical hernia. CT/CT abdomen pelvis w con* [id number]: 1[address] No CT evidence of acute intra-abdominal or pelvic pathology. 2. Additional findings, as above.
[2024-08-18] MEDS: iohexol 350 mg/mL 500 mL Btl (per mL) IV (13:20)
== END 2024-08-18 11:53 | disposition home or self-care (01) ==
LOC: RAD 11:53
PROVIDERS: PCP Family Medicine; Visit Provider Family Medicine
DX: R19.7 Diarrhea, unspecified (principal); R10.9 Unspecified abdominal pain; R11.10 Vomiting, unspecified; R59.0 Localized enlarged lymph nodes
CPT/HCPCS: 74177

== ENCOUNTER → 2025-02-09 14:01 | Outpatient (BNVA) | payer BC, MEDICAID, SELFPAY | PROVIDERS: PCP Family Medicine; Visit Provider Nurse Practitioner Women's Health | DX: Z12.4 Encounter for screening for malignant neoplasm of cervix (principal) | CPT/HCPCS: 88175 ==